=== PATIENT | male | born 2000 | race Asian ===

== ENCOUNTER 2022-11-03 21:21 | Emergency (ER) | payer OTHER ==
--- NOTE | 2022-11-03 23:47 | ED Physician Documentation ---
PD HPI LOWER EXT INJURY - Stated complaint Stated Complaint: L KNEE INJ - Chief complaint Chief Complaint: Ext Problem - History obtained from History obtained from: Patient - History of Present Illness PD HPI LOW EXT INJURY LOCATION: Left, Knee Type of injury: Other (L knee hit playing volleyball) Pain level max: 5 Pain level now: 2 Improved by: Rest Worsened by: Moving, Palpating Associated symptoms: No: Weakness, Numbness, Tingling, Swelling, Discolored Contributing factors: No: Anticoagulated - Additional information Additional information: 22-year-old male presents to the emergency department left knee pain. He states he was playing volleyball today when another player fell onto his knee and push the knee backwards hyperextending it. Has had pain since that time. He has been able to walk. There is no swelling, numbness or tingling. He states most of the pain is on the medial joint line. He is not anticoagulated. This happened about 2 hours ago. Review of Systems Constitutional: denies: Fever PD PAST MEDICAL HISTORY - Past Medical History Past Medical History: No - Past Surgical History Past Surgical History: No - Present Medications Home Medications: Ambulatory Orders Medication Instructions Recorded Confirmed No Known Home Medications 11/03/22 11/03/22 - Allergies Allergies/Adverse Reactions: Allergies Allergy/AdvReac Type Severity Reaction Status Date / Time No Known Drug Allergies Allergy Verified 11/03/22 21:34 PD ED PE NORMAL - Vitals Vital signs reviewed: Yes - General General: Alert and oriented X 3, No acute distress - Derm Derm: Warm and dry - Extremities Extremities: Other (Left knee - ACL, MCL, PCL, LCL are intact. No significant effusion. Mild tenderness along the medial joint line. Otherwise normal examination of the knee. Neurovascular intact.) - Neuro Neuro: Alert and oriented X 3 Results - Vitals Vitals: Vital Signs - 24 hr 11/03/22 11/03/22 21:32 23:52 Temperature 35.9 C L Heart Rate 74 60 Respiratory 18 16 Rate Blood Pressure 126/87 H 130/75 O2 Saturation 100 99 Oxygen O2 Source Room air - Rads (name of study) Left knee x-ray Relevant Findings:: Final report received, See rad report (No acute abnormality) PD Medical Decision Making - ED course Complexity details: reviewed results, re-evaluated patient, considered differential, d/w patient ED course: 22-year-old male with what appears to be a left knee sprain. Declines crutches. Tano bandage was applied. X-ray is negative. We will have him follow-up with his PCP for further care. Declines pain medication as well. Ambulating well. Patient counseled regarding signs and symptoms for which I believe and urgent re-evaluation would be necessary. Patient with good understanding of and agreement to plan and is comfortable going home at this time This document was made in part using voice recognition software. While efforts are made to proofread this document, sound alike and grammatical errors may occur. Departure - Departure Disposition: Home, Self Care Clinical Impression: Left knee sprain Qualifiers: Encounter type: initial encounter Involved ligament of knee: unspecified ligament Qualified Code(s): S83.92XA - Sprain of unspecified site of left knee, initial encounter Condition: Good Instructions: ED Sprain Knee Follow-Up: your,doctor in 1 week [Other] Comments: You can use Motrin or Tylenol as needed for pain. [place] Your x-rays did not show any acute abnormalities today. There could be a meniscal injury. Forms: Activity restrictions Discharge Date/Time: 11/03/22 23:53
[2022-11-03 23:53] VITALS: BP 130/75
--- NOTE | 2022-11-04 00:04 | XRAY Report ---
PROCEDURE: Knee 4 View LT INDICATIONS: knee pain playing volleyball TECHNIQUE: 3 views of the left knee were acquired. COMPARISON: None. FINDINGS: Bones: No fractures or dislocations. No suspicious bony lesions. Soft tissues: No knee joint effusion. No suspicious soft tissue calcifications or masses. IMPRESSION: No acute bony abnormality. Reviewed by: Sebastian Jeffries MD on 11/04/2022 12:03 AM PDT Approved by: Sebastian Jeffries MD on 11/04/2022 12:03 AM PDT Station ID: [id number]
== END 2022-11-03 23:53 | disposition home or self-care (01) ==
LOC: ED 21:21
DX: S83.92XA Sprain of unspecified site of left knee, initial encounter (principal); W50.0XXA Accidental hit or strike by another person, initial encounter; Y93.68 Activity, volleyball (beach) (court)
CPT/HCPCS: 99283